=== PATIENT | male | born 1960 | race Two or more races ===

== ENCOUNTER 2025-03-31 04:49 | Emergency (ER) | payer OTHER ==
[~2025-03-31] VITALS: Ht 182.9 cm; Wt 96.2 kg
[2025-03-31] MEDS ORDERED: METFORMIN HCL1000 M2 PO (05:20)
[2025-03-31] MEDS ORDERED: CARVEDILOL ER40 MG PO (05:21)
[2025-03-31] MEDS ORDERED: OZEMPIC2 MG/0.75 SUBCUTANEO (05:21)
[2025-03-31] MEDS ORDERED: SIMVASTATIN5 MG PO (05:21)
[2025-03-31] MEDS ORDERED: KETOROLAC TROMETHAMINE 60 MG VIAL IM ONE ×2 (07:45→08:08)
[2025-03-31] MEDS ORDERED: DEXAMETHASONE SODIUM PHOSPHATE 4 MG/ML VIAL IM ONE (07:45)
[2025-03-31] MEDS ORDERED: DEXAMETHASONE SODIUM PHOSPHATE 4 MG/ML VIAL ONE (08:08)
== END 2025-03-31 08:39 | disposition home or self-care (01) ==
LOC: ER 04:50
DX: M54.50 Low back pain, unspecified (principal); E11.9 Type 2 diabetes mellitus without complications; Z79.84 Long term (current) use of oral hypoglycemic drugs; I10 Essential (primary) hypertension